=== PATIENT | female | born 1990 | race Hispanic/Latino ===

== ENCOUNTER 2019-04-01 | Inpatient (IN) ==
[2019-04-01 00:36] LABS: URINE SOURCE VOIDED
[2019-04-01 00:41] LABS: BILIRUBIN URINE NEGATIVE (NEGATIVE); BLOOD URINE 4+ (NEGATIVE); GLUCOSE URINE NEGATIVE (NEGATIVE); KETONE URINE TRACE mg/dL (NEGATIVE); LEUKOCYTES URINE 2+ (NEGATIVE); NITRITE URINE NEGATIVE (NEGATIVE); PROTEIN URINE TRACE mg/dL (NEGATIVE); SP GRAVITY URINE 1.015; UROBILINOGEN URINE 1 mg/dL
[2019-04-01 00:42] LABS: CLARITY SL. CLOUDY (CLEAR); COLOR YELLOW
[2019-04-01 00:50] LABS: UR AMPHETAMINES QUAL NONE DETECTED (NONE DETECT); UR BARBITUATES QUAL NONE DETECTED (NONE DETECT); UR BENZODIAZEPIN QUAL NONE DETECTED (NONE DETECT); UR CANNABINOIDS QUAL NONE DETECTED (NONE DETECT); UR COCAINE QUAL NONE DETECTED (NONE DETECT); UR METHADONE QUAL NONE DETECTED (NONE DETECT); UR METHAMPHETAMINE QUAL NONE DETECTED (NONE DETECT); UR OPIATES QUAL NONE DETECTED (NONE DETECT); UR OXYCODONE QUAL NONE DETECTED (NONE DETECT); UR PCP QUAL NONE DETECTED (NONE DETECT); UR PROPOXYPHENE QUAL NONE DETECTED (NONE DETECT); UR TCA QUAL NONE DETECTED (NONE DETECT)
[2019-04-01] MEDS ORDERED: STADOL IV ONE (01:01)
[2019-04-01] MEDS ORDERED: LR 1,000 ML IV SCH ×2 (01:30→01:45)
[2019-04-01 01:36] LABS: BASO# 0.02 X1000 (0.0-0.2); BASO% 0.1 % (0.0-0.8); EOS# 0.03 X1000 (0.0-0.7); EOS% 0.2 % (0.0-10.0); HEMATOCRIT 37.6 % (37.0-47.0); IMM GRAN# 0.05 X1000 (0.0-0.04); IMM GRAN% 0.3 % (0.0-0.5); LYMPH# 2.65 X1000 (1.2-3.4); LYMPH% 17.6 % (20.5-51.1); MCH 30.6 PG (27-31); MCHC 34.6 g/dL (33-37); MCV 88.5 FL (81-99); MONO# 1.01 X1000 (0.11-0.59); MONO% 6.7 % (1.7-9.3); MPV 10.3 FL (7.4-10.4); NEUT% 75.1 % (42.2-75.2); PLT 170 X1000 (130-400); RBC 4.25 XMIL (4.2-5.4); RDW 14.3 % (11.5-14.5); WBC 15.06 X1000 (4.8-10.8)
[2019-04-01] MEDS ORDERED: ZOFRAN IV PRN (01:41)
[2019-04-01] MEDS ORDERED: AMPICILLIN 2 GM/NS 2 GM/100 ML IVPB IV ONE (01:41)
[2019-04-01] MEDS ORDERED: STADOL IV PRN (01:41)
[2019-04-01] MEDS ORDERED: PEPCID PO ONE (01:41)
[2019-04-01] MEDS ORDERED: REGLAN PO ONE (01:41)
[2019-04-01] MEDS ORDERED: KEFZOL 1 GM/D5W 1 GM/50 ML IVPB IV PRN (01:41)
[2019-04-01] MEDS ORDERED: PEPCID PO PRN (01:41)
[2019-04-01] MEDS ORDERED: TYLENOL PO PRN (01:41)
[2019-04-01] MEDS ORDERED: PEPCID IV PRN (01:41)
[2019-04-01] MEDS ORDERED: PITOCIN 30 UNITS/NS 30 UNIT/500 ML IV.SOLN IV SCH ×2 (01:45→06:15)
[2019-04-01] MEDS ORDERED: SODIUM CHLORIDE 0.9% INJ SCH (01:45)
[2019-04-01 02:01] LABS: RAPID HIV PRESUMPTIVE NEGATIVE; RPR NON-REACTIVE (NONREACTIVE)
[2019-04-01] MEDS ORDERED: MINERAL OIL MISC ONE (02:07)
[2019-04-01] MEDS ORDERED: XYLOCAINE-MPF 1% INJ ONE (02:08)
[2019-04-01] MEDS ORDERED: NAROPIN 0.2% INJ ONE (02:16)
[2019-04-01] MEDS ORDERED: FENTANYL-BUPIV-NS 2 MCG-0.1% 200 ML EPIDURAL SCH (02:30)
--- NOTE | 2019-04-01 02:37 | HISTORY AND PHYSICAL ---
CHIEF COMPLAINT: Contractions. HISTORY OF PRESENT ILLNESS: A 28-year-old, G3, P2-0-0-2 at 38 weeks and 6 days by stated VALENTIN, admitted for latent labor. The patient's cervix noted to change while in triage. The patient denied of any other obstetrical complaints.This is a patient of Dr. Rubin. PAST MEDICAL HISTORY: Denied. PAST SURGICAL HISTORY: Denied. PAST OBSTETRICAL HISTORY: G3, P2-0-0-2, two prior spontaneous vaginal deliveries, 1st baby, 8 pounds, no complications. Second baby, 8 pounds 6 ounces, no complications. Denied history of any miscarriages or spontaneous abortions. GYNECOLOGICAL HISTORY: Denied of any STDs or HIV. SOCIAL HISTORY: Smokes about 1 pack per week. Denies any alcohol or illicit drug use. The patient was recently incarcerated and was released. FAMILY HISTORY: Denied. PHYSICAL EXAMINATION: VITAL SIGNS: Temperature 97 degrees Fahrenheit, temporal, heart rate 87, respirations 18, blood pressure 118/69, SpO2 98% on room air. Weight 81.6 kg, height 5 feet 1 inch. GENERAL: No apparent distress. CARDIOVASCULAR: Regular rate and rhythm. PULMONARY: Clear to auscultation bilaterally. No rhonchi, wheezing or rales. ABDOMEN: Soft, nontender to palpation and gravid. Estimated weight by Stanley's approximately 7 pounds. PELVIS: SVE: 5 cm, 90% effacement, and -1 cm station, cephalic presentation. EXTREMITIES: No lower extremity tenderness to palpation. HEART TRACINGS: 120s, moderate variability, accelerations present. No apparent decelerations. TOCOMETER: contractions every 2 to 3 minutes. LABORATORY: White blood cell count 15.06, hemoglobin 13.0, hematocrit 37.6, platelet 170,000. Glucose 103. UDS negative. RPR nonreactive. Rapid HIV 1/2 antibody presumptive negative. The rest of labs pending. LABS: The patient's labs not available at this time. ASSESSMENT AND PLAN: A 28-year-old G3, P2-0-0-2 at 38 weeks and 6 days by stated VALENTIN with: 1. Labor. - Plan for expectant management. - We will start ampicillin for GBS unknown status per hospital protocol. Risks and benefits of vaginal delivery discussed with the patient, including, but not limited to, bleeding, infection, lacerations, including use of episiotomy, shoulder dystocia, brachial plexus injury, use of vacuum and/or forceps (with risks and benefits of each operative delivery discussed in depth with patient), and risks of emergent section. The patient expressed understanding. All questions answered. The patient desires epidural. IV fluid bolus initiated. - well-being category 1 tracings. 2. Tobacco use. 3. Recent incarceration. - Social Work consultation . - Request records from Dr. Rubin's clinic in the morning. [facility]ITALMarvin
[2019-04-01] MEDS ORDERED: AMPICILLIN 1 GM/NS 1 GM/50 ML IVPB IV SCH (05:42)
[2019-04-01] MEDS ORDERED: PITOCIN 20 UNITS/NS 20 UNITS/1,000 ML IV.SOLN IV SCH (06:15)
[2019-04-01] MEDS ORDERED: BENADRYL PO PRN (06:15)
[2019-04-01] MEDS ORDERED: BOOSTRIX VACCINE IM ONE (06:15)
[2019-04-01] MEDS ORDERED: PITOCIN IM PRN (06:15)
[2019-04-01] MEDS ORDERED: M-M-R II VACCINE SUBQ ONE (06:15)
[2019-04-01] MEDS ORDERED: CYTOTEC PO PRN (06:15)
[2019-04-01] MEDS ORDERED: MINERAL OIL PO PRN (06:15)
[2019-04-01] MEDS ORDERED: XYLOCAINE-MPF 1% INJ PRN (06:15)
--- NOTE | 2019-04-01 06:46 | OPERATIVE NOTE ---
PROCEDURE DATE: 04/01/2019 DELIVERY DETAILS: A 28-year-old G3, P2-0-0-2 at 38 weeks and 6 days, progressed to complete cervical dilation with epidural present and had a spontaneous vaginal delivery of a live male , 's 7 and 9 at one and five minutes respectively. Weight 6 pounds 14 ounces. The fetus was initially in the LOT position and spontaneously rotated to KALLI. Once head was delivered, anterior and posterior shoulders were delivered without difficulty. No shoulder dystocia noted. The rest of the body then delivered. Nuchal cord x1 was noted, which was reduced after delivery of rest of body. Once the was delivered, infant was placed on maternal abdomen. Delayed umbilical cord clamping was done for about 30 seconds. Umbilical cord was then doubly clamped and cut. Infant was then transferred to the baby warmer for further evaluation. Umbilical cord blood was collected. Placenta was then delivered grossly intact with three-vessel cord present. Inspection of the cervix, vagina, and perineum was done revealing a periclitoral laceration, which was repaired with 3-0 Vicryl suture in a running locked fashion. Sponge and needle count was correct x2. The patient tolerated delivery well. Estimated blood loss approximately 400 mL. Fundus firm.
[2019-04-01] MEDS: NORCO-5 PO PRN ×2 (07:21→23:57)
[2019-04-01] MEDS: MOTRIN PO PRN ×3 (07:21→23:57)
[2019-04-01] MEDS: PERI MEDS (DERMOPLAST/NUPERCAINAL/TUCKS) MISC PRN (07:22)
[2019-04-01] MEDS ORDERED: PRENATAL VIT PO SCH (09:00)
[2019-04-01] MEDS ORDERED: [UNRECOGNIZED DRUG - OTHER] PO SCH (09:00)
[2019-04-01] MEDS ORDERED: FE FUMARATE PO SCH (09:00)
[2019-04-01] MEDS: PRECARE PO SCH (09:21)
[2019-04-01] MEDS: COLACE PO PRN (09:21)
[2019-04-01 14:57] LABS: RUBELLA SCREEN IMMUNE (IMMUNE)
[2019-04-01 16:06] LABS: HIV ANTIBODY SCREEN SEE COMMENTS
--- NOTE | 2019-04-02 06:57 | OB/GYN PROGRESS NOTE ---
Progress Note OB - . Patient Problems: Current Active Problems Problem Status Onset (spontaneous vaginal delivery) Acute History of incarceration Acute Tobacco use affecting , antepartum Acute OB Progress Note: Vital Signs - 24 hr 04/01/19 07:05 04/01/19 11:30 04/01/19 16:20 Temperature 96.4 F L 96 F L 96.3 F L Pulse Rate 75 81 69 Respiratory Rate 18 18 16 Blood Pressure 120/67 111/57 113/68 Blood Pressure [Left Arm] 122/75 O2 Sat by Pulse Oximetry 98 99 100 04/01/19 20:45 04/02/19 00:00 Temperature 98 F 97.4 F L Pulse Rate 85 80 Respiratory Rate 18 18 Blood Pressure 113/69 102/59 Blood Pressure [Left Arm] O2 Sat by Pulse Oximetry 97 97 Laboratory Results - last 24 hr 04/01/19 04/01/19 01:20 02:01 HIV 1&2 Antibody Screen SEE COMMENTS Rubella Immunity Screen IMMUNE No complaints, denies PIH/Orthostatic symptoms A&O NAD CTAB RRR S/ND/Fundus firm Normal lochia no C/C/E PPD 1 s/p doing well - ambulate - post care - anticipate D/C home Thursday.
[2019-04-02 07:01] LABS: HEPATITIS B SURFACE ANTIGEN SEE COMMENTS
[2019-04-02 08:15] LABS: BASO# 0.03 X1000 (0.0-0.2); BASO% 0.2 % (0.0-0.8); EOS# 0.08 X1000 (0.0-0.7); EOS% 0.7 % (0.0-10.0); HEMATOCRIT 32.3 % (37.0-47.0); HEMOGLOBIN 10.7 g/dL (12.0-16.0); IMM GRAN# 0.08 X1000 (0.0-0.04); IMM GRAN% 0.7 % (0.0-0.5); LYMPH# 3.03 X1000 (1.2-3.4); LYMPH% 24.7 % (20.5-51.1); MCH 30.5 PG (27-31); MCHC 33.1 g/dL (33-37); MONO# 0.93 X1000 (0.11-0.59); MONO% 7.6 % (1.7-9.3); NEUT% 66.1 % (42.2-75.2); PLT 155 X1000 (130-400); RBC 3.51 XMIL (4.2-5.4); RDW 14.5 % (11.5-14.5); WBC 12.25 X1000 (4.8-10.8)
[2019-04-02] MEDS: NORCO-5 PO PRN (12:55)
[2019-04-02] MEDS: PRECARE PO SCH (12:55)
[2019-04-02] MEDS: MOTRIN PO PRN (12:55)
[2019-04-02] MEDS: PERI MEDS (DERMOPLAST/NUPERCAINAL/TUCKS) MISC PRN (17:11)
[2019-04-02] MEDS: COLACE PO PRN (17:11)
[2019-04-03] MEDS: MOTRIN PO PRN ×2 (00:30→09:00)
[2019-04-03] MEDS: COLACE PO PRN (00:30)
[2019-04-03] MEDS: NORCO-5 PO PRN ×2 (00:30→09:00)
[2019-04-03 07:41] VITALS: BP 96/52
[2019-04-03] MEDS: PRECARE PO SCH (09:00)
[2019-04-03] MEDS ORDERED: DEPO-PROVERA IM ONE (09:44)
[2019-04-03] MEDS ORDERED: EPIFOAM FOAM TOP PRN (09:45)
--- NOTE | 2019-04-03 09:48 | OB/GYN PROGRESS NOTE ---
Progress Note OB - . Patient Problems: Current Active Problems Problem Status Onset (spontaneous vaginal delivery) Acute History of incarceration Acute Tobacco use affecting , antepartum Acute OB Progress Note: Vital Signs - 24 hr 04/03/19 00:25 04/03/19 07:39 Temperature 97.7 F 97.6 F Pulse Rate 78 82 Respiratory Rate 18 18 Blood Pressure 108/62 96/52 O2 Sat by Pulse Oximetry 99 96 HPI: Pt seen and examined. Reports hemorrhoidal pain. Ambulating and urinating w/o difficulty. Tolerating regular diet. Denies fever, chills, N/V VS: please see above GEN: NAD, AAO x3 CV: RRR RESP: CTA b/l ABD: soft, NTTP, FF below umbilicus EXT: neg CT ASSESSMENT: PPD#2 s/p PLAN: -routine PP care -epi foam for hemorrhoids -counseled on contraceptive options, requesting Depo-provera today -plan for d/c home today -f/u in 6 weeks
== END 2019-04-03 13:59 | disposition home or self-care (01) | DRG 807 ==
LOC: P.OPLD → P.LD 00:02
PROVIDERS: ADMIT Obstetrics & Gynecology Obstetrics; ATTEND Obstetrics & Gynecology Obstetrics